=== PATIENT | female | born 1990 | race Caucasian/White ===

== ENCOUNTER → 2017-02-28 | Outpatient (CLI) | payer OTHER ==
[~2017-02-28] MED LIST: AMOXIL500 MG PO; ATENOLOL25 MG PO; BACTRIM DS 8001 TA1 PO; CIPRO250 MG PO; LEVOTHYROXIN0.125 M1 PO; MEDROL DOSEPAK4 MG PO; PHENERGAN W/DM120 ML PO; PRAVACHOL40 MG PO; PRAVASTATIN SOD10 MG PO; VICO10300 PO; VITAMIN D32000 UNI1 PO; XYZAL5 M1 PO; ZOFRAN ODT4 MG SL
== END | disposition home or self-care (01) ==
LOC: RAD 15:07
DX: R31.9 Hematuria, unspecified (principal)

== ENCOUNTER → 2017-05-29 | Outpatient (CLI) | payer OTHER | END | disposition home or self-care (01) | LOC: US 10:30 | DX: I65.23 Occlusion and stenosis of bilateral carotid arteries (principal); Z79.890 Hormone replacement therapy ==

== ENCOUNTER 2017-06-22 16:47 | Emergency (ER) | payer OTHER ==
[~2017-06-22] VITALS: Ht 170.1 cm; Wt 72.6 kg
[2017-06-22 17:01] VITALS: BP 146/86
[2017-06-22] MEDS ORDERED: CETIRIZINE10 MG PO (18:14)
[2017-06-22] MEDS ORDERED: FLONASE ALLERG9.9 ML NAS (18:14)
[2017-06-22] MEDS ORDERED: AUGMENTIN 875875 MG PO (18:14)
== END 2017-06-22 17:37 | disposition home or self-care (01) ==
LOC: ED 16:47
DX: J01.10 Acute frontal sinusitis, unspecified (principal); Z88.1 Allergy status to other antibiotic agents; Z79.899 Other long term (current) drug therapy

== ENCOUNTER 2017-08-19 00:35 | Emergency (ER) | payer OTHER ==
[~2017-08-19] VITALS: Ht 162.5 cm; Wt 86.2 kg
[~2017-08-19 00:35] MED LIST changes: +AUGMENTIN 875875 MG PO; +CETIRIZINE10 MG PO; +FLONASE ALLERG9.9 ML NAS
[2017-08-19 00:39] VITALS: BP 128/81
== END 2017-08-19 02:21 | disposition home or self-care (01) ==
LOC: ED 00:35
DX: J02.8 Acute pharyngitis due to other specified organisms (principal); Z90.89 Acquired absence of other organs; Z79.899 Other long term (current) drug therapy; Z88.1 Allergy status to other antibiotic agents; Z88.8 Allergy status to other drugs, medicaments and biological substances

== ENCOUNTER 2017-10-09 09:34 | Emergency (ER) | payer OTHER ==
[~2017-10-09] VITALS: Ht 162.5 cm; Wt 85.7 kg
[2017-10-09 09:37] VITALS: BP 128/84
[2017-10-09] MEDS ORDERED: LAMOTRIGINE100 MG PO (09:42)
[2017-10-09] MEDS ORDERED: PREDNISONE10 MG PO (09:45)
== END 2017-10-09 11:38 | disposition home or self-care (01) ==
LOC: ED 09:34
DX: S52.592A Other fractures of lower end of left radius, initial encounter for closed fracture (principal); R03.0 Elevated blood-pressure reading, without diagnosis of hypertension; Z90.89 Acquired absence of other organs; Z79.899 Other long term (current) drug therapy; Z88.1 Allergy status to other antibiotic agents; Z88.8 Allergy status to other drugs, medicaments and biological substances; X50.1XXA Overexertion from prolonged static or awkward postures, initial encounter; Y93.89 Activity, other specified; Y92.89 Other specified places as the place of occurrence of the external cause; Y99.9 Unspecified external cause status

== ENCOUNTER → 2017-11-13 | Outpatient (CLI) | payer OTHER ==
[~2017-11-13] MED LIST changes: +LAMOTRIGINE100 MG PO; +PREDNISONE10 MG PO
== END | disposition home or self-care (01) ==
LOC: CT 07:38
DX: J34.1 Cyst and mucocele of nose and nasal sinus (principal)

== ENCOUNTER 2018-05-04 17:16 | Emergency (ER) | payer OTHER ==
[2018-05-04 17:17] VITALS: BP 141/96
[2018-05-04] MEDS ORDERED: LEVOFLOXACIN500 MG PO (18:41)
[2018-05-04] MEDS ORDERED: DIFLUCAN150 MG PO (18:43)
[2018-11-04] MEDS ORDERED: OMNICEF300 MG PO (10:53)
[2018-11-04] MEDS ORDERED: FLONASE ALLERG9.9 ML NAS (10:53)
[2018-11-04] MEDS ORDERED: ZOFRAN4 MG PO (10:53)
== END 2018-05-04 18:47 | disposition home or self-care (01) ==
LOC: ED 17:16
DX: J32.0 Chronic maxillary sinusitis (principal); J40 Bronchitis, not specified as acute or chronic; Z88.2 Allergy status to sulfonamides; Z79.899 Other long term (current) drug therapy

== ENCOUNTER → 2018-08-11 | Outpatient (CLI) | payer OTHER ==
[~2018-08-11] MED LIST changes: +DIFLUCAN150 MG PO; +LEVOFLOXACIN500 MG PO; +OMNICEF300 MG PO; +ZOFRAN4 MG PO
== END | disposition home or self-care (01) ==
LOC: US 08:50
DX: C73 Malignant neoplasm of thyroid gland (principal)

== ENCOUNTER 2018-12-11 17:19 | Emergency (ER) | payer OTHER ==
[~2018-12-11] VITALS: Ht 162.5 cm; Wt 86.2 kg
[2018-12-11 17:21] VITALS: BP 123/87
[2018-12-11 17:57] LABS: BASO % 0.4 % (0.0-1.0); EOS # 0.1 10*3/uL (0.0-0.4); EOS % 1.5 % (1.0-4.0); HEMATOCRIT 37.6 % (37.0-47.0); HEMOGLOBIN 12.5 g/dl (12.0-16.0); LYMPH # 2.6 10*3/uL (1.3-4.4); LYMPH % 33.9 % (27.0-41.0); MEAN CELL VOLUME 84.1 fl (81.0-99.0); MEAN CORPUSCULAR HGB CONC 33.2 g/dl (33.0-37.0); MEAN PLATELET VOLUME 9.8 fl (9.6-12.3); MONO # 0.4 10*3/uL (0.1-1.0); MONO % 5.6 % (3.0-9.0); NEUT # 4.4 10*3/uL (2.3-7.9); NEUT % 58.3 % (47.0-73.0); PLATELET COUNT AUTOMATED 312 10*3/uL (130-400); RED BLOOD COUNT 4.47 10*6/uL (4.10-5.10); RED CELL DISTRI WIDTH 13.4 % (0-14.5); WHITE BLOOD COUNT 7.6 10*3/uL (4.8-10.8)
[2018-12-11 18:13] LABS: ALBUMIN 3.8 gm/dl (3.1-4.5); ALKALINE PHOSPHATASE 95 U/L (45-117); BUN 8 mg/dl (7-24); CHLORIDE 106 mmol/L (98-107); CREATININE 0.75 mg/dL (0.55-1.02); POTASSIUM 3.6 mmol/L (3.5-5.1); SGOT/AST 10 IU/L (3-35); SGPT/ALT 22 U/L (12-78); SODIUM 139 mmol/L (136-145); TOTAL PROTEIN 7.7 gm/dL (6.4-8.2)
[2018-12-11] MEDS ORDERED: ZOFRAN4 MG PO (19:43)
[2018-12-11] MEDS ORDERED: AUGMENTIN 875-875 MG PO (19:43)
== END 2018-12-11 19:51 | disposition left against medical advice (07) ==
LOC: ED 17:19
PROVIDERS: Nurse Practitioner Family
DX: H70.91 Unspecified mastoiditis, right ear (principal); E78.00 Pure hypercholesterolemia, unspecified; Z88.2 Allergy status to sulfonamides; Z88.1 Allergy status to other antibiotic agents; Z79.899 Other long term (current) drug therapy; Z79.2 Long term (current) use of antibiotics

== ENCOUNTER 2019-01-26 20:03 | Emergency (ER) | payer OTHER ==
[~2019-01-26] VITALS: Ht 162.5 cm; Wt 87.1 kg
[~2019-01-26 20:03] MED LIST changes: +AUGMENTIN 875-875 MG PO
[2019-01-26 20:05] VITALS: BP 159/90
[2019-01-26] MEDS ORDERED: OMNICEF300 MG PO (20:16)
[2019-01-26] MEDS ORDERED: PREDNISONE20 M1 PO (20:16)
[2019-01-26] MEDS ORDERED: ZYRTEC10 MG PO (20:16)
[2019-01-26] MEDS ORDERED: FLONASE ALLERG9.9 ML NAS (20:16)
== END 2019-01-26 20:30 | disposition home or self-care (01) ==
LOC: ED 20:03
DX: H66.92 Otitis media, unspecified, left ear (principal); J01.90 Acute sinusitis, unspecified; Z90.89 Acquired absence of other organs; Z79.899 Other long term (current) drug therapy; Z88.1 Allergy status to other antibiotic agents; Z88.8 Allergy status to other drugs, medicaments and biological substances

== ENCOUNTER 2019-03-24 15:10 | Emergency (ER) | payer OTHER ==
[~2019-03-24] VITALS: Ht 162.5 cm; Wt 86.2 kg
[~2019-03-24 15:10] MED LIST changes: +PREDNISONE20 M1 PO; +ZYRTEC10 MG PO
[2019-03-24] MEDS ORDERED: LAMOTRIGINE100 MG PO (15:12)
[2019-03-24] MEDS ORDERED: SERTRALINE HYDR25 MG PO (15:12)
[2019-03-24] MEDS ORDERED: LEVOTHYROXINE175 MCG PO (15:12)
[2019-03-24] MEDS ORDERED: ROSUVASTATIN CA20 MG PO (15:13)
[2019-03-24] MEDS ORDERED: VITAMIN D50000 UNIT PO (15:13)
[2019-03-24 15:14] VITALS: BP 124/90
== END 2019-03-24 16:33 | disposition home or self-care (01) ==
LOC: ED 15:10
DX: J06.9 Acute upper respiratory infection, unspecified (principal); Z88.1 Allergy status to other antibiotic agents; Z88.2 Allergy status to sulfonamides; Z79.899 Other long term (current) drug therapy

== ENCOUNTER 2019-06-28 02:49 | Emergency (ER) | payer OTHER ==
[~2019-06-28] VITALS: Ht 162.5 cm; Wt 90.7 kg
[~2019-06-28 02:49] MED LIST changes: +LEVOTHYROXINE175 MCG PO; +ROSUVASTATIN CA20 MG PO; +SERTRALINE HYDR25 MG PO; +VITAMIN D50000 UNIT PO
[2019-06-28 02:55] VITALS: BP 152/96
== END 2019-06-28 04:05 | disposition home or self-care (01) ==
LOC: ED 02:49
DX: K04.7 Periapical abscess without sinus (principal); E78.00 Pure hypercholesterolemia, unspecified; Z88.2 Allergy status to sulfonamides; Z88.1 Allergy status to other antibiotic agents; Z79.899 Other long term (current) drug therapy; Z98.890 Other specified postprocedural states

== ENCOUNTER 2019-10-18 10:25 | Emergency (ER) | payer OTHER ==
[~2019-10-18] VITALS: Ht 162.5 cm; Wt 95.3 kg
[2019-10-18 10:30] VITALS: BP 134/84
[2019-10-18] MEDS ORDERED: CIPRODEX 0.3%-7.5 ML OT (10:56)
[2019-10-18] MEDS ORDERED: AMINOPHYLLIN200 MG PO (10:56)
== END 2019-10-18 11:13 | disposition home or self-care (01) ==
LOC: ED 10:25
DX: H66.92 Otitis media, unspecified, left ear (principal); H60.92 Unspecified otitis externa, left ear; F41.9 Anxiety disorder, unspecified; E78.00 Pure hypercholesterolemia, unspecified; Z88.2 Allergy status to sulfonamides; Z88.8 Allergy status to other drugs, medicaments and biological substances; Z79.899 Other long term (current) drug therapy

== ENCOUNTER → 2019-12-21 | Outpatient (CLI) | payer OTHER ==
[~2019-12-21] MED LIST changes: +AMINOPHYLLIN200 MG PO; +CIPRODEX 0.3%-7.5 ML OT
[2019-12-21 11:07] LABS: ALBUMIN 3.8 gm/dl (3.1-4.5); ALKALINE PHOSPHATASE 95 U/L (45-117); BUN 7 mg/dl (7-24); CHLORIDE 106 mmol/L (98-107); CHOLESTEROL 162 mg/dL (<200); CREATININE 0.64 mg/dL (0.55-1.02); FREE T4 1.64 ng/dl (0.76-1.46); HDL CHOLESTEROL 30 mg/dl (40-60); LDL CHOLESTEROL 104 mg/dL (9-159); POTASSIUM 4.2 mmol/L (3.5-5.1); SGOT/AST 27 IU/L (3-35); SGPT/ALT 50 U/L (12-78); SODIUM 138 mmol/L (136-145); TOTAL PROTEIN 7.7 gm/dL (6.4-8.2); TRIGLYCERIDES 138 mg/dl (<150); VLDL CHOLESTEROL 28 mg/dL (6-40)
[2019-12-21 11:12] LABS: THYROID STIM HORMONE (HS) 0.012 uIU/ml (0.358-4.75)
[2019-12-21 11:25] LABS: VITAMIN D, 25-HYDROXY 29.1 ng/mL (30-100)
== END | disposition home or self-care (01) ==
LOC: LAB 10:16
PROVIDERS: ATTEND Internal Medicine Endocrinology, Diabetes & Metabolism
DX: E89.0 Postprocedural hypothyroidism (principal); E55.9 Vitamin D deficiency, unspecified; R53.82 Chronic fatigue, unspecified; E66.9 Obesity, unspecified

== ENCOUNTER → 2020-02-08 | Outpatient (CLI) | payer OTHER | END | disposition home or self-care (01) | LOC: LAB 10:44 | PROVIDERS: ATTEND Nurse Practitioner Family | DX: E55.9 Vitamin D deficiency, unspecified (principal); I10 Essential (primary) hypertension; E78.2 Mixed hyperlipidemia; E03.9 Hypothyroidism, unspecified; H66.002 Acute suppurative otitis media without spontaneous rupture of ear drum, left ear ==

== ENCOUNTER 2020-07-02 16:39 | Emergency (ER) | payer OTHER ==
[~2020-07-02] VITALS: Ht 162.5 cm; Wt 96.2 kg
[2020-07-02 16:46] VITALS: BP 140/77
== END 2020-07-02 18:14 | disposition home or self-care (01) ==
LOC: ED 16:39
DX: K08.89 Other specified disorders of teeth and supporting structures (principal); F41.9 Anxiety disorder, unspecified; Z88.2 Allergy status to sulfonamides; Z88.8 Allergy status to other drugs, medicaments and biological substances; Z79.899 Other long term (current) drug therapy; Z98.890 Other specified postprocedural states

== ENCOUNTER 2020-08-23 17:56 | Emergency (ER) | payer OTHER ==
[~2020-08-23] VITALS: Ht 162.5 cm; Wt 95.3 kg
[2020-08-23 18:02] VITALS: BP 141/90
[2020-08-23] MEDS ORDERED: DOXYCYCLINE100 M3 PO (18:23)
== END 2020-08-23 18:37 | disposition home or self-care (01) ==
LOC: ED 17:56
DX: J32.1 Chronic frontal sinusitis (principal); J32.0 Chronic maxillary sinusitis; H92.03 Otalgia, bilateral; Z88.2 Allergy status to sulfonamides; Z88.1 Allergy status to other antibiotic agents; Z79.2 Long term (current) use of antibiotics; Z79.899 Other long term (current) drug therapy; Z90.89 Acquired absence of other organs

== ENCOUNTER → 2020-09-19 | Outpatient (CLI) | payer OTHER ==
[~2020-09-19] MED LIST changes: +DOXYCYCLINE100 M3 PO
[2020-09-19 11:10] LABS: ALBUMIN 3.8 gm/dl (3.1-4.5); ALKALINE PHOSPHATASE 102 U/L (45-117); BUN 8 mg/dl (7-24); CHLORIDE 105 mmol/L (98-107); CHOLESTEROL 199 mg/dL (<200); CREATININE 0.61 mg/dL (0.55-1.02); FREE T4 1.37 ng/dl (0.76-1.46); LDL CHOLESTEROL 140 mg/dL (9-159); POTASSIUM 4.1 mmol/L (3.5-5.1); SGOT/AST 15 IU/L (3-35); SGPT/ALT 28 U/L (12-78); SODIUM 137 mmol/L (136-145); TOTAL PROTEIN 7.9 gm/dL (6.4-8.2); TRIGLYCERIDES 116 mg/dl (<150)
[2020-09-19 11:15] LABS: THYROID STIM HORMONE (HS) 0.691 uIU/ml (0.358-4.75)
== END | disposition home or self-care (01) ==
LOC: LAB 10:02
PROVIDERS: ATTEND Internal Medicine Endocrinology, Diabetes & Metabolism
DX: C73 Malignant neoplasm of thyroid gland (principal); E78.2 Mixed hyperlipidemia; E55.9 Vitamin D deficiency, unspecified

== ENCOUNTER 2020-10-16 17:31 | Emergency (ER) | payer OTHER ==
[~2020-10-16] VITALS: Ht 162.5 cm; Wt 94.3 kg
[2020-10-16 18:04] VITALS: BP 145/91
[2020-10-16] MEDS ORDERED: FLONASE ALLERG9.9 ML NAS (19:11)
[2020-10-16] MEDS ORDERED: PREDNISONE20 M1 PO (19:11)
[2020-10-16] MEDS ORDERED: TESSALON PERLE100 M1 PO (19:11)
== END 2020-10-16 19:46 | disposition home or self-care (01) ==
LOC: ED 17:31
DX: J30.9 Allergic rhinitis, unspecified (principal); Z88.2 Allergy status to sulfonamides; Z88.1 Allergy status to other antibiotic agents; Z79.2 Long term (current) use of antibiotics; Z79.899 Other long term (current) drug therapy; Z90.89 Acquired absence of other organs

== ENCOUNTER → 2020-11-02 | Outpatient (CLI) | payer OTHER ==
[~2020-11-02] MED LIST changes: +TESSALON PERLE100 M1 PO
== END | disposition home or self-care (01) ==
LOC: CT 10-29 15:00
PROVIDERS: ATTEND Nurse Practitioner Family
DX: J01.01 Acute recurrent maxillary sinusitis (principal); J30.9 Allergic rhinitis, unspecified; J34.89 Other specified disorders of nose and nasal sinuses

== ENCOUNTER 2020-11-23 10:29 | Emergency (ER) | payer OTHER ==
[~2020-11-23] VITALS: Ht 162.5 cm; Wt 96.2 kg
[2020-11-23 10:49] VITALS: BP 161/97
[2020-11-23 11:20] LABS: BASO % 0.4 % (0.0-1.0); EOS # 0.1 10*3/uL (0.0-0.4); EOS % 1.2 % (1.0-4.0); HEMATOCRIT 37.9 % (37.0-47.0); LYMPH # 1.9 10*3/uL (1.3-4.4); LYMPH % 26.9 % (27.0-41.0); MEAN CORPUSCULAR HGB 24.2 pg (27.0-31.0); MEAN CORPUSCULAR HGB CONC 31.9 g/dl (33.0-37.0); MEAN PLATELET VOLUME 9.6 fl (9.6-12.3); MONO # 0.4 10*3/uL (0.1-1.0); MONO % 5.5 % (3.0-9.0); NEUT # 4.7 10*3/uL (2.3-7.9); NEUT % 65.7 % (47.0-73.0); PLATELET COUNT AUTOMATED 324 10*3/uL (130-400); RED BLOOD COUNT 4.99 10*6/uL (4.10-5.10); RED CELL DISTRI WIDTH 16.2 % (0-14.5); WHITE BLOOD COUNT 7.2 10*3/uL (4.8-10.8)
[2020-11-23 11:39] LABS: ALBUMIN 3.8 gm/dl (3.1-4.5); ALKALINE PHOSPHATASE 86 U/L (45-117); BUN 4 mg/dl (7-24); CHLORIDE 106 mmol/L (98-107); CREATININE 0.55 mg/dL (0.55-1.02); POTASSIUM 4.1 mmol/L (3.5-5.1); SGOT/AST 20 IU/L (3-35); SGPT/ALT 31 U/L (12-78); SODIUM 137 mmol/L (136-145); TOTAL PROTEIN 7.7 gm/dL (6.4-8.2)
[2020-11-23] MEDS ORDERED: PREDNISONE20 M1 PO (13:29)
== END 2020-11-23 13:45 | disposition home or self-care (01) ==
LOC: ED 10:29
PROVIDERS: Physician Assistant
DX: B27.90 Infectious mononucleosis, unspecified without complication (principal); Z88.1 Allergy status to other antibiotic agents; Z88.2 Allergy status to sulfonamides; Z79.899 Other long term (current) drug therapy

== ENCOUNTER → 2022-01-29 | Outpatient (CLI) | payer OTHER ==
[2022-01-29 10:22] LABS: BASO % 0.3 % (0.0-1.0); EOS # 0.1 10*3/uL (0.0-0.4); EOS % 1.6 % (1.0-4.0); HEMATOCRIT 38.4 % (37.0-47.0); LYMPH # 1.9 10*3/uL (1.3-4.4); LYMPH % 27.6 % (27.0-41.0); MEAN CELL VOLUME 77.7 fl (81.0-99.0); MEAN CORPUSCULAR HGB 25.1 pg (27.0-31.0); MEAN CORPUSCULAR HGB CONC 32.3 g/dl (33.0-37.0); MEAN PLATELET VOLUME 9.1 fl (9.6-12.3); MONO # 0.4 10*3/uL (0.1-1.0); MONO % 5.7 % (3.0-9.0); NEUT # 4.4 10*3/uL (2.3-7.9); NEUT % 64.5 % (47.0-73.0); PLATELET COUNT AUTOMATED 323 10*3/uL (130-400); RED BLOOD COUNT 4.94 10*6/uL (4.10-5.10); RED CELL DISTRI WIDTH 14.8 % (0-14.5); WHITE BLOOD COUNT 6.9 10*3/uL (4.8-10.8)
[2022-01-29 11:29] LABS: ALKALINE PHOSPHATASE 98 U/L (45-117); BUN 8 mg/dl (7-24); CHLORIDE 106 mmol/L (98-107); CHOLESTEROL 143 mg/dL (<200); CREATININE 0.69 mg/dL (0.55-1.02); LDL CHOLESTEROL 86 mg/dL (9-159); POTASSIUM 4.1 mmol/L (3.5-5.1); SGOT/AST 21 IU/L (3-35); SGPT/ALT 34 U/L (12-78); SODIUM 137 mmol/L (136-145); TOTAL PROTEIN 7.5 gm/dL (6.4-8.2); TRIGLYCERIDES 98 mg/dl (<150)
== END | disposition home or self-care (01) ==
LOC: LAB 10:08
PROVIDERS: ATTEND Nurse Practitioner Family
DX: I10 Essential (primary) hypertension (principal); E78.2 Mixed hyperlipidemia; E03.9 Hypothyroidism, unspecified; E66.9 Obesity, unspecified

== ENCOUNTER 2023-04-24 15:17 | Emergency (ER) | payer OTHER ==
[~2023-04-24] VITALS: Ht 162.5 cm; Wt 96.6 kg
[2023-04-24 15:46] VITALS: BP 152/99
[2023-04-24 18:39] LABS: BASO % 0.2 % (0.0-1.0); EOS # 0.1 10*3/uL (0.0-0.4); EOS % 0.7 % (1.0-4.0); HEMATOCRIT 40.8 % (37.0-47.0); LYMPH # 1.9 10*3/uL (1.3-4.4); LYMPH % 21.1 % (27.0-41.0); MEAN CELL VOLUME 80.6 fl (81.0-99.0); MEAN CORPUSCULAR HGB 25.3 pg (27.0-31.0); MEAN CORPUSCULAR HGB CONC 31.4 g/dl (33.0-37.0); MEAN PLATELET VOLUME 9.2 fl (9.6-12.3); MONO # 0.3 10*3/uL (0.1-1.0); MONO % 3.6 % (3.0-9.0); NEUT # 6.6 10*3/uL (2.3-7.9); NEUT % 74.2 % (47.0-73.0); PLATELET COUNT AUTOMATED 364 10*3/uL (130-400); RED BLOOD COUNT 5.06 10*6/uL (4.10-5.10); RED CELL DISTRI WIDTH 14.4 % (0-14.5)
[2023-04-24 18:52] LABS: CHLORIDE 104 mmol/L (98-107); POTASSIUM 3.8 mmol/L (3.4-5.1)
[2023-04-24 18:54] LABS: BUN < 5 mg/dl (9-23)
== END 2023-04-24 19:17 | disposition home or self-care (01) ==
LOC: ED 15:17
PROVIDERS: Nurse Practitioner Family
DX: K64.9 Unspecified hemorrhoids (principal); F41.9 Anxiety disorder, unspecified; E78.00 Pure hypercholesterolemia, unspecified; Z88.2 Allergy status to sulfonamides; Z88.8 Allergy status to other drugs, medicaments and biological substances; Z98.890 Other specified postprocedural states

== ENCOUNTER → 2024-01-08 | Outpatient (CLI) | payer OTHER | END | disposition home or self-care (01) | LOC: LAB 17:28 | PROVIDERS: ATTEND Nurse Practitioner Family | DX: R09.81 Nasal congestion (principal); R05.1 Acute cough; Z20.822 Contact with and (suspected) exposure to COVID-19 ==

== ENCOUNTER 2024-07-20 16:42 | Emergency (ER) | payer OTHER ==
[~2024-07-20] VITALS: Ht 162.5 cm; Wt 90.7 kg
[2024-07-20] MEDS ORDERED: SERTRALINE HYDR50 MG PO (17:41)
[2024-07-20 17:44] VITALS: BP 130/87
[2024-07-20] MEDS ORDERED: AMOX-CLAV 875-1 EACH PO (17:52)
[2024-07-20] MEDS ORDERED: Amoxicillin/Clavulanate Pota 875 MG TAB PO ONE (17:55)
== END 2024-07-20 19:31 | disposition home or self-care (01) ==
LOC: ED 16:42
DX: J32.0 Chronic maxillary sinusitis (principal); J32.1 Chronic frontal sinusitis; F41.9 Anxiety disorder, unspecified; H92.03 Otalgia, bilateral; Z88.2 Allergy status to sulfonamides; Z79.899 Other long term (current) drug therapy; Z90.89 Acquired absence of other organs

== ENCOUNTER → 2024-08-08 | Outpatient (CLI) | payer OTHER ==
[~2024-08-08] MED LIST changes: +AMOX-CLAV 875-1 EACH PO; +SERTRALINE HYDR50 MG PO
== END | disposition home or self-care (01) ==
LOC: US 07-29 09:00
PROVIDERS: ATTEND Internal Medicine Endocrinology, Diabetes & Metabolism
DX: C73 Malignant neoplasm of thyroid gland (principal)

== ENCOUNTER 2025-02-15 01:50 | Emergency (ER) | payer OTHER ==
[~2025-02-15] VITALS: Ht 162.5 cm; Wt 93.0 kg
[2025-02-15] MEDS ORDERED: Lidocaine Hydrochloride 2% 10 ML AMP SC ONE (02:30)
[2025-02-15] MEDS ORDERED: MELOXICAM15 MG PO (02:33)
[2025-02-15] MEDS ORDERED: PENICILLIN VK500 MG PO (02:33)
[2025-02-15] MEDS ORDERED: ORAJEL 4X TOOTHA7 GM MM (02:33)
== END 2025-02-15 02:53 | disposition home or self-care (01) ==
LOC: ED 01:50
DX: K08.89 Other specified disorders of teeth and supporting structures (principal); H92.03 Otalgia, bilateral; F41.9 Anxiety disorder, unspecified; E78.00 Pure hypercholesterolemia, unspecified; Z88.1 Allergy status to other antibiotic agents; Z88.8 Allergy status to other drugs, medicaments and biological substances